=== PATIENT | female | born 1955 | race Caucasian/White ===

== ENCOUNTER → 2016-09-04 | Outpatient (CLI) | payer BC ==
[~2016-09-04] MED LIST: ASPI325T6 PO; ASPIRIN E.C. 8181 MG PO; CELEBREX; COUMADIN; FERROUS SU325 MG/TAB PO; FISH OIL1000 MG PO; FOLIC ACID 40400 MCG PO; GLUCOSAMINE & C1 CAP PO; LORTAB 5/500 501 TAB PO; LUTEIN6 MG PO; MVI; NAPROSYN500 MG PO; NORCO 325 MG-7.1 TAB PO; PINDOLOL5 MG PO; SENOKOT S 50 MG1 TAB PO; ULTRAM 50MG TAB50 MG PO; VITAMIN E1000 U/CAP PO; VITAMINC1000TA PO
== END ==
LOC: MC.RAD 11:14
DX: Z12.31 Encounter for screening mammogram for malignant neoplasm of breast (principal)

== ENCOUNTER → 2016-11-11 | Outpatient (CLI) | payer BC | LOC: COL.CARD 13:22 | DX: I47.1 Supraventricular tachycardia (principal); I49.3 Ventricular premature depolarization; Z86.79 Personal history of other diseases of the circulatory system ==

== ENCOUNTER → 2018-06-08 | Outpatient (CLI) | payer BC | LOC: MC.RAD 13:18 | DX: Z12.31 Encounter for screening mammogram for malignant neoplasm of breast (principal) ==

== ENCOUNTER → 2019-06-20 | Outpatient (CLI) | payer BC | LOC: MC.RAD 14:27 | DX: Z12.31 Encounter for screening mammogram for malignant neoplasm of breast (principal) ==

== ENCOUNTER → 2020-04-05 | Outpatient (CLI) | payer BC | LOC: COL.RAD 07:32 | DX: M25.531 Pain in right wrist (principal) | CPT/HCPCS: J3301; Q9967 ==

== ENCOUNTER → 2021-07-18 | Outpatient (CLI) | payer BC | LOC: MC.RAD 16:00 | DX: Z12.31 Encounter for screening mammogram for malignant neoplasm of breast (principal) ==

== ENCOUNTER → 2022-08-15 | Outpatient (CLI) | payer BC | LOC: MC.RAD 13:04 | DX: Z12.31 Encounter for screening mammogram for malignant neoplasm of breast (principal) ==

== ENCOUNTER 2023-05-13 11:00 | Outpatient (RCR) | payer BC | END 2023-05-17 | disposition home or self-care (01) | LOC: WSOT | DX: S63.592D Other specified sprain of left wrist, subsequent encounter (principal); X58.XXXD Exposure to other specified factors, subsequent encounter ==